=== PATIENT | female | born 1995 | race Caucasian/White ===

== ENCOUNTER 2022-08-09 10:41 | Outpatient (CLI) | payer OTHER, SELFPAY ==
--- NOTE | ~2022-08-09 | US_ITS ---
Pelvic ultrasound. Clinical History: First trimester , missed COMPARISON: 08/03/2022 Technique: Realtime transabdominal and transvaginal scanning of the pelvis was performed. Color flow Doppler and Doppler spectral analysis were performed. Findings: The uterus is anteverted. The intrauterine gestational sac is present, without pole or yolk sac. Minimal subchorionic hemorrhage noted. Average sac diameter of 2.1 cm corresponds to an estimated gestational age of 7 weeks 0 days. The right ovary measures 2.0 x 2.7 x 1.7 cm. No significant right ovarian or adnexal mass is seen. The left ovary measures 3.8 x 2.8 x 2.4 cm. No significant left ovarian or adnexal mass is seen. There is no evidence of free fluid in the cul de sac. Impression: Intrauterine gestational sac with estimated gestational age of 7 weeks 0 days, but no pole or y olk sac. Findings are compatible blighted ovum/missed . Minimal subchorionic hemorrhage. Reviewed, dictated and finalized at [facility]. Impression: Intrauterine gestational sac with estimated gestational age of 7 weeks 0 days, but no pole or yolk sac. Findings are compatible blighted ovum/missed abo rtion. Minimal subchorionic hemorrhage.
== END 2022-08-09 10:42 | disposition home or self-care (01) ==
LOC: ANHIMG 10:44
PROVIDERS: Visit Provider Obstetrics & Gynecology
DX: O02.1 Missed abortion (principal)
CPT/HCPCS: 76801; 76817

== ENCOUNTER 2022-08-10 02:13 | Day surgery (SDC) | payer OTHER, SELFPAY ==
[2022-08-06 09:48] VITALS: BMI 24.8
--- NOTE | 2022-08-06 09:52 | PC.NURSE ---
Report to the Outpatient Waiting Room, entrance under the green pavilion located off [facility], at time 1030 on date 08/10/22. Planned Procedure Time: 1230. Time changes happen often and if your time is changed the preop area will call you the afternoon before. - You and your visitor will be asked to self-screen and do not enter if you have any COVID symptoms. - Only one visitor is requested with a max of two and NO children visitors are allowed at this time. - The patient visitor may be requested to leave or wait in car when not with patient due to distancing restrictions. - A mask is optional within the hospital at this time. Patients may have clear liquids (water, carbonated beverages, clear teas, apple juice) until 3 hours prior to surgery with a maximum of 20 ounces. - No food from midnight until time of surgery Take the following medications with a SIP of water the morning of surgery: N/A DO NOT STOP ANY OF YOUR OTHER PRESCRIPTION MEDICATIONS PRIOR TO SURGERY?EXCEPT THE FOLLOWING Medications to discontinue per physician: N/A Date to take last dose: N/A Please no make-up, nail chadian, hairspray, perfume, deodorant, or body powder the day of surgery. No jewelry (including any body piercings) or valuables the day of surgery, leave them at home. Please take a shower or bath the night before, or the morning of, surgery with an antibacterial soap. Wear comfortable, loose fitting clothing. - Jewelry must be removed prior to entering the operating room. Rings and piercings that are not removed may be cut off. - The hospital will not accept responsibility for valuables. - Please leave all valuables, including medications, at home the day of surgery. If you are going home after surgery, a licensed non emergency services ambulance driver must drive you home. - NO public transportation without another adult if you receive anesthesia. - We recommend that an adult stay with you for 24 hours following discharge. - We also recommend that you do not drive, make important decision, drink alcoholic beverages, or take any drugs that were not prescribed by your health care provider for at least 24 hours after your discharge time. Follow any additional instructions given to you from your surgeon. If you or anyone in your household have experienced Covid symptoms in the past week, please notify your surgeon or the nurse liaison at the phone number below for possible testing. Telephone instructions given to PT - GISELLA SILVER and asked if any additional questions and then verbalized understanding. Patient advised to call surgeon office or pre surgery nurse liaison [phone] if any additional questions.
[2022-08-10 11:22] LABS: Hematocrit 34.3 % (37.0-47.0); Hemoglobin 11.7 g/dL (12.0-15.0); Mean Corpuscular HGB Conc 34.1 g/dl (32-36); Mean Corpuscular Hemoglobin 30.5 pg (26-34); Mean Corpuscular Volume 89.3 fl (80-100); Mean Platelet Volume 9.1 fl (7.4-10.4); Platelet Count Result 251 k/mm3 (150-375); Red Blood Count 3.84 M/mm3 (4.2-5.4); Red Cell Distribution Width 12.5 % (11.5-14.5); White Blood Count 9.5 K/mm3 (4.5-10.0)
--- NOTE | 2022-08-10 11:25 | P.PNAN_ITS ---
Anes - Initial Pre Proc Eval Procedure: Operation Date: 08/10/22 12:30 Proposed Procedures p Suction Dilation and Curettage - Eliseo Rosales MD Date/Time: 08/10/22 11:25 Surgeon: Eliseo Rosales MD Pre Op Diagnosis: missed ab Patient Data Age: 26 Gender: F Height: 1.7 m Weight: 72 kg Allergies Allergy/AdvReac Type Severity Reaction Status Date / Time No Known Allergies Allergy Verified 08/06/22 09:48 Home Medications Medication Instructions Recorded Confirmed Type No Home Medications 07/30/22 08/06/22 History Laboratory Tests 08/10/22 11:15 WBC 9.5 K/mm3 K/mm3 (4.5-10.0) RBC 3.84 M/mm3 L M/mm3 (4.2-5.4) Hgb 11.7 g/dL L g/dL (12.0-15.0) Hct 34.3 % L % (37.0-47.0) MCV 89.3 fl fl (80-100) MCH 30.5 pg pg (26-34) MCHC 34.1 g/dl g/dl (32-36) RDW 12.5 % % (11.5-14.5) Plt Count 251 k/mm3 k/mm3 (150-375) MPV 9.1 fl fl (7.4-10.4) Patient hx anesthesia problems: none Family hx anesthesia problems: none Results Review: All pre-operative results and documents have been reviewed as part of the pre- operative evaluation. [facility] Past Medical History Medical History Suppression of menses Surgical History Surgical History H/O wrist surgery Family History Family History Legal Guardian No problems noted. Mother Skin cancer Grandparent Skin cancer Hypertension Social History Social History Smoking status: Never smoker Alcohol intake: current Alcohol use details: RARE WHEN NOT Substance use: never Substance use type: does not use Living arrangements: with family Additional living arrangements comments: spouse Occupation/Education: occupation Gender identity (if verbalized by the patient): Female Sexual Orientation (if Verbalized by the Patient): Straight or Heterosexual Spiritual care concerns: No Anes - Eval Final PreProcedure Day of Procedure 08/10/22 11:25 Patient weight: normal Heart: regular rate and rhythm Lungs: clear to auscultation Airway: Mallampati scale class II Neurological: alert and oriented Last oral intake: >/= 8 hours ASA classification: II Emergent: no Anesthetic plan: proceed Anesthesia type and monitoring: general GIVS and standard monitoring Results Review: All pre-operative results and documents have been reviewed as part of the pre- operative evaluation. Informed Consent: The patient's anesthetic plan and its attendant risks and benefits were discussed with the patient/family/POA. Questions were solicited and answers provided to the satisfaction of the patient/family/POA.
[2022-08-10] MEDS: LACTATED RINGERS 1,000 ML 30 ML IV CONT (11:30)
[2022-08-10] MEDS: ACETAMINOPHEN 500 MG TABLET 1000 MG PO (11:30)
--- NOTE | 2022-08-10 11:47 | WPDHPUPDATE1 ---
History and Physical Update Update Date/Time: 08/10/22 11:47 26-year-old female presents for suction curettage due to blighted ovum. She has had 2 ultrasounds in the last 2 weeks which has shown growth in the Endometrial cavity but no pole no gestational sac. Assessment: 1. Blighted ovum Plan: 1. Suction curettage History and Physical has been reviewed, including an updated exam of the patient. There are NO changes in the patient's condition. Risks, benefits, and alternatives have been discussed and questions answered. Patient agrees to proceed with procedure.
[2022-08-10 12:47] VITALS: BP 126/69; PULSE 73; RESP 14; TEMP 37.3; O2SAT 100
[2022-08-10] MEDS: KETOROLAC 30 MG/ML VIAL (*BKC) IV PUSH (12:52)
[2022-08-10 12:55] VITALS: BP 102/61; PULSE 88; RESP 16; O2SAT 100
--- NOTE | 2022-08-10 13:00 | W.PM.PROC2 ---
Procedure Note - Detailed Date of Procedure 08/10/22 Pre-op Diagnosis blighted ovum Post-op Diagnosis Same Procedure Performed suction curettage Surgeon Eliseo Rosales MD Anesthesia MAC Findings moderate POC Description of Procedure Patient prepped/draped usual manner. Uterus sounded to 8 cm. Dilated to allow 8mm curette to be placed. Suction removed moderate amount POC, sharp curette confirmed no remaining tissue. No sig bleed. Sent to RR stable condition. Estimated Blood Loss 250 Drains No Packing No Pathology Yes Complications No immediate complications Condition Stable Disposition PACU [facility] Billing Surgery - Charge Forward: Surgery Billing
[2022-08-10 13:25] VITALS: BP 99/68; PULSE 62; RESP 16
[2022-08-10 13:50] VITALS: BP 104/68; PULSE 59; RESP 14
== END 2022-08-10 14:02 | disposition home or self-care (01) ==
PROVIDERS: Visit Provider Obstetrics & Gynecology
PROC: (CPT 59820; principal; 2022-08-10 12:30)
DX: O02.0 Blighted ovum and nonhydatidiform mole (principal)
CPT/HCPCS: 59820; 36415; 85027; 85461; 86850; 86900; 86901; 88305; A9270; J1885; J2250; J2405; J2704; J3010; J7120

== ENCOUNTER 2023-04-10 10:58 | Outpatient (CLI) | payer OTHER, SELFPAY ==
--- NOTE | ~2023-04-10 | XR_ITS ---
EXAMINATION: XR hysterosalpingogram DATE: 04/10/2023 12:38 INDICATION: Female infertility, unspecified. TECHNIQUE: Fluoroscopy was performed by the radiologist during contrast infusion into the endometrial cavity of the uterus by the primary physician. Fluoroscopy exposure time was 0.4 minutes. The total number of images was 4. FINDINGS: The uterine cavity is normal in morphology. The left fallopian tube is normal in caliber. T here is normal free intraperitoneal spillage of contrast on the left. There is no contrast opacificat ion of the right fallopian tube. IMPRESSION: 1. Occluded right fallopian tube. 2. Normal left fallopian tube. Reviewed, dictated and finalized at location A. [employer]
== END 2023-04-10 10:59 | disposition home or self-care (01) ==
PROVIDERS: Visit Provider Student in an Organized Health Care Education/Training Program
DX: N97.9 Female infertility, unspecified (principal)
CPT/HCPCS: 58340; 74740; Q9966

== ENCOUNTER 2023-10-18 09:18 | Outpatient (CLI) | payer BC, SELFPAY ==
[2023-10-18 10:39] LABS: Basophils Absolute Auto 0.1 K/mm3 (0.0-0.1); Basophils Percent Auto 0.6 % (0.2-1.2); Eosinophils Absolute Auto 0.1 K/mm3 (0-0.3); Eosinophils Percent Auto 1.3 % (0-4.4); Hematocrit 35.1 % (37.0-47.0); Hemoglobin 11.5 g/dL (12.0-15.0); Immature Granulocyte Absolute 0.27 K/mm3 (0.00-0.031); Immature Granulocyte Percent A 2.4 % (0-0.5); Lymphocytes Absolute Auto 2.54 K/mm3 (0.9-3.2); Lymphocytes Percent Auto 22.7 % (18.3-44.2); Mean Corpuscular HGB Conc 32.8 g/dl (32-36); Mean Corpuscular Hemoglobin 31.3 pg (26-34); Mean Corpuscular Volume 95.6 fl (80-100); Mean Platelet Volume 9.5 fl (7.4-10.4); Monocytes Absolute Auto 0.7 K/mm3 (0.1-0.6); Monocytes Percent Auto 6.3 % (2.6-8.5); Neutrophils Absolute Auto 7.5 K/mm3 (1.3-6.7); Neutrophils Percent Auto 66.7 % (45.5-73.1); Platelet Count Result 242 k/mm3 (150-375); Red Blood Count 3.67 M/mm3 (4.2-5.4); Red Cell Distribution Width 13.9 % (11.5-14.5); White Blood Count 11.2 K/mm3 (4.5-10.0)
[2023-10-18 11:18] LABS: Glucose 1 Hour PP 50gm Dose 144 mg/dL
[2023-10-18 11:46] LABS: HIV 1/2 Ab P24 Ag Result Negative (Negative)
[2023-10-18 13:13] LABS: Rapid Plasma Reagin Non-Reactive (NonReactive)
== END 2023-10-18 09:19 | disposition home or self-care (01) ==
LOC: ANHLAB 09:19
PROVIDERS: Visit Provider Obstetrics & Gynecology
DX: Z34.90 Encounter for supervision of normal pregnancy, unspecified, unspecified trimester (principal); Z3A.00 Weeks of gestation of pregnancy not specified; N94.89 Other specified conditions associated with female genital organs and menstrual cycle
CPT/HCPCS: 36415; 82947; 85025; 86592; 86703; 86747; G0432

== ENCOUNTER 2023-10-25 07:02 | Outpatient (CLI) | payer BC, SELFPAY ==
[2023-10-25 07:39] LABS: Glucose Fasting Gestational 80 mg/dL (>/=95)
[2023-10-25 10:07] LABS: Glucose 2 Hour Gest 127 mg/dL (>/= 155)
[2023-10-25 10:12] LABS: Glucose 1 Hour Gest 158 mg/dL (>/=180)
[2023-10-25 11:40] LABS: Glucose 3 Hour Gest 126 mg/dL (>/=140)
== END 2023-10-25 07:03 | disposition home or self-care (01) ==
LOC: ANHLAB 07:03
PROVIDERS: Visit Provider Obstetrics & Gynecology
DX: R73.09 Other abnormal glucose (principal)
CPT/HCPCS: 36415; 82951; 82952

== ENCOUNTER 2023-10-31 17:48 | Observation (INO) | payer BC, SELFPAY ==
--- NOTE | 2023-10-31 17:48 | OBADM ---
This patient, Keyona Conte, admitted to the OB room OB Post 115 for observation. Patient/family oriented to hospital policies and general routines including ID bracelet, bed and alarms, visiting hours, pain management, procedures, bathroom and other care routines, personal items, smoking policy, room service/diet, and visiting hours. Patient/Family are encouraged to report perceived risks to care and to ask questions if they do not understand what they are told or what they should do.
[2023-10-31 18:00] VITALS: BMI 30.7
[2023-10-31 18:25] VITALS: TEMP 37
[2023-10-31 18:31] VITALS: BP 115/73; PULSE 96
[2023-10-31 18:37] LABS: Appearance Urine Clear (Clear); Bilirubin Urine Negative (Negative); Blood Urine Negative (Negative); Color Urine Yellow (Yellow); Glucose Urine UA Negative (Negative); Ketones Urine Negative (Negative); Leukocyte Esterase Ur Negative LEU/UL (Negative); Nitrate Urine Negative (Negative); Protein Urine Negative (Negative); Urobilinogen Urine 0.2 mg/dL (<2.0); pH Urine 6.5 (5.0-9.0)
[2023-10-31 18:38] LABS: Add Urine Microscopic? NO; Specific Grav Ur 1.004 (1.001-1.035)
[2023-10-31 18:45] VITALS: BP 119/67; PULSE 90
[2023-10-31 19:00] VITALS: BP 120/71; PULSE 86
[2023-10-31 19:15] VITALS: BP 124/74; PULSE 94
[2023-10-31 19:30] VITALS: BP 120/71; PULSE 96
[2023-10-31] MEDS: TERBUTALINE SULFATE 1 MG/ML VIAL 0.25 MG SUB-Q (20:32)
--- NOTE | 2023-11-01 10:28 | P.PNOB_ITS ---
OB - Triage/Final Diagnosis Visit Information Date of evaluation: 10/31/23 Reason for evaluation: threatened labor Comments/Additional reasons for admission: I have assessed the risk for this patient, Keyona Jose Manuel Conte, and determined that she would benefit from observation care. Evaluation Laboratory results: Laboratory Tests 10/31/23 18:22 Urine Color Yellow Urine Appearance Clear Urine pH 6.5 Ur Specific [place] 1.004 Urine Protein Negative Urine Glucose (UA) Negative Urine Ketones Negative Ur Blood (Man) Negative Urine Nitrate Negative Urine Bilirubin Negative Urine Urobilinogen 0.2 Leukocyte Esterase Rfl Negative Vital signs: Vital Signs - 24 hr 10/31/23 18:31 10/31/23 18:45 10/31/23 19:00 Temperature Pulse Rate 96 90 86 Blood Pressure 115/73 119/67 120/71 Oxygen Delivery 10/31/23 19:15 10/31/23 19:30 10/31/23 18:25 Temperature 98.6 F Pulse Rate 94 96 Blood Pressure 124/74 120/71 Oxygen Delivery 10/31/23 18:00 Temperature Pulse Rate Blood Pressure Oxygen Delivery Room Air
== END 2023-10-31 21:47 | disposition home or self-care (01) ==
PROVIDERS: Admitting Provider Student in an Organized Health Care Education/Training Program; Visit Provider Student in an Organized Health Care Education/Training Program
DX: O47.03 False labor before 37 completed weeks of gestation, third trimester (principal); Z3A.30 30 weeks gestation of pregnancy
CPT/HCPCS: 81003; 96372; G0378; G0379; J3105

== ENCOUNTER 2023-11-07 21:49 | Observation (INO) | payer BC, SELFPAY ==
[2023-11-07 21:51] VITALS: BP 116/76; PULSE 95; RESP 15; TEMP 36.6; O2SAT 100
[2023-11-07 22:24] VITALS: BP 124/90; PULSE 88; RESP 18; O2SAT 99
--- NOTE | 2023-11-07 22:33 | PC.NURSE ---
OB to the ER at 2230
[2023-11-07 22:35] LABS: Basophils Absolute Auto 0.1 K/mm3 (0.0-0.1); Basophils Percent Auto 0.4 % (0.2-1.2); Eosinophils Absolute Auto 0.2 K/mm3 (0-0.3); Eosinophils Percent Auto 1.7 % (0-4.4); Hematocrit 37.8 % (37.0-47.0); Hemoglobin 12.5 g/dL (12.0-15.0); Immature Granulocyte Absolute 0.35 K/mm3 (0.00-0.031); Immature Granulocyte Percent A 2.8 % (0-0.5); Lymphocytes Percent Auto 23.9 % (18.3-44.2); Mean Corpuscular HGB Conc 33.1 g/dl (32-36); Mean Corpuscular Hemoglobin 30.8 pg (26-34); Mean Corpuscular Volume 93.1 fl (80-100); Monocytes Absolute Auto 1.2 K/mm3 (0.1-0.6); Monocytes Percent Auto 9.1 % (2.6-8.5); Neutrophils Absolute Auto 7.8 K/mm3 (1.3-6.7); Neutrophils Percent Auto 62.1 % (45.5-73.1); Platelet Count Result 188 k/mm3 (150-375); Red Blood Count 4.06 M/mm3 (4.2-5.4); Red Cell Distribution Width 14.1 % (11.5-14.5); White Blood Count 12.6 K/mm3 (4.5-10.0)
[2023-11-07 22:46] LABS: Alanine Aminotransferase 16 U/L (6-35); Alkaline Phosphatase 163 U/L (38-126); Anion Gap 6 mmol/L (4-12); Aspartate Amino Transferase 29 U/L (14-36); Bilirubin,Total 0.5 mg/dL (0.2-1.3); Blood Urea Nitrogen 6 mg/dL (7-17); Calcium 9.1 mg/dL (8.4-10.2); Carbon Dioxide 24 mmol/L (22-30); Chloride 106 mmol/L (98-107); Estimated CRCL calculation 110 ml/min; Estimated Glomerular Filt Rate > 60; Glucose 81 mg/dL (65-110); Potassium 3.7 mmol/L (3.4-5.0); Sodium 136 mmol/L (137-145)
[2023-11-07 23:02] LABS: Creatine Kinase 72 U/L (30-135)
[2023-11-07] MEDS: LACTATED RINGERS 1,000 ML 999 ML (23:29)
[2023-11-07 23:35] LABS: Prothrombin Time 13.8 Seconds (11.1-14.7)
[2023-11-07 23:36] LABS: Fibrinogen 531 mg/dl (215-510); Partial Thromboplastin Time 26.1 Seconds (22.3-36.8)
[2023-11-07] MEDS: TERBUTALINE SULFATE 1 MG/ML VIAL 0.25 MG SUB-Q (23:39)
[2023-11-07 23:40] LABS: D Dimer 1.99 ug/mL (<0.48)
[2023-11-08] VITALS (75 sets, daily range): BP systolic 107–111; BP diastolic 51–67; PULSE 70–101; TEMP 36.7; O2SAT 94–100; BMI 31.5
[2023-11-08 00:03] LABS: Appearance Urine Clear (Clear); Bacteria Urine 1+ /hpf; Bilirubin Urine Negative (Negative); Blood Urine Negative (Negative); Color Urine Yellow (Yellow); Glucose Urine UA Negative (Negative); Ketones Urine 1+ mg/dL (Negative); Leukocyte Esterase Ur Trace LEU/UL (Negative); Need Manual Microscopic Reviewed; Nitrate Urine Negative (Negative); Non Pathogenic Casts 0-2; Protein Urine Negative (Negative); RBC Urine 0-2 /hpf (0-2); Specific Grav Ur 1.008 (1.001-1.035); Squamous Epithelial Cell Urine None Seen /hpf (Few); Urobilinogen Urine 0.2 mg/dL (<2.0); pH Urine 6.5 (5.0-9.0)
[2023-11-08 00:05] LABS: Add Urine Microscopic? YES
--- NOTE | 2023-11-08 00:08 | PC.NURSE ---
Bedside NST performed in ED by Faustino Hassan RN. [id number] FHR1: Baseline 145 with moderate variability and accelerations. no decelerations noted. FHR2: Baseline 135 with moderate variability and accelerations. no decelerations noted. Uterus: 2 contractions noted during this period. lasting 50-70 seconds. 6.5 minute apart. Uterine irritability noted in between contractions and throughout NST. 2316: RN called Dr. Bolden and notified her of bedside NST results. Orders Received. 2333: Terbutaline administered. RN stayed on unit. Uterine irritability ceased. Pts primary ER nurse made aware of results of NST as well as administration of Terbutaline.
--- NOTE | 2023-11-08 00:16 | ED.GENADULT ---
HPI - General Adult General Chief complaint: Animal Bite Stated complaint: snake bite Time Seen by Provider: 11/07/23 22:54 History of Present Illness HPI narrative: patient is a 28-year-old female presents emergency department with chief complaint of possible snake bite to the left thigh. The patient is 31 weeks and called her OBGYN. The patient was told to come the emergency department for evaluation. The patient reports that the area is non bruised reports only a small wound to the left thigh patient does now report that she is having some contractions Related Data Home Medications Medication Instructions Recorded Confirmed vits no.126-ferrous fum tablet PO 07/19/23 10/29/23 28 mg iron-folic acid 800 mcg tablet (Classic ) aspirin 81 mg tablet,delayed 162 mg PO DAILY 09/10/23 10/29/23 release (Adult Low Dose Aspirin) Allergies Allergy/AdvReac Type Severity Reaction Status Date / Time No Known Allergies Allergy Verified 10/29/23 15:19 Review of Systems Review of Systems: A 10 system review of systems was completed on the patient and is negative except for what is stated in the HPI. Nursing and ancillary documentation was reviewed. [facility] Past Medical History Medical History Suppression of menses Surgical History Surgical History H/O wrist surgery History of hysteroscopy (08/10/22) Hscope D&C missed AB Family History Family History Legal Guardian No problems noted. Mother Skin cancer Grandparent Skin cancer Hypertension Social History Social History Smoking status: Never smoker Second hand tobacco smoke exposure: No Alcohol intake: former Alcohol use details: RARE WHEN NOT Substance use: never Substance use type: does not use Lack of Transportation: No Lack of Food: Never True Current Housing: I Have Housing Concerned About Future Housing: No Difficulty Paying Gas/Electric Bills: No Difficulty Paying for Meds: No Currently Unemployed: No Education: Master's Degree or Higher Difficulty w/ Childcare or Family Care: No Living arrangements: with family Additional living arrangements comments: spouse 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 Gender identity (if verbalized by the patient): Female Sexual Orientation (if Verbalized by the Patient): Straight or Heterosexual Spiritual care concerns: No Exam Narrative: GENERAL: Well-appearing, well-nourished, and in no acute distress. HEAD: Normocephalic, atraumatic. EYES: PERRLA and EOMI. ENT: Nares clear, no rhinorrhea or epistaxis. Mucous membranes moist. NECK: Supple. CHEST: Clear to auscultation. No respiratory distress. HEART: Regular rate and rhythm. No murmur heard. Normal peripheral pulses. ABDOMEN: Soft, nontender, nondistended, normal active bowel sounds. EXTREMITIES: Normal range of motion. No edema. small abrasion/puncture wound to the left thigh no bruising SKIN: Warm, dry, no rash. NEURO: No focal deficits. Alert and oriented x3. PSYCH: Normal mood and affect. Course Vital Signs Vital signs: Vital Signs Temperature 36.6 C 11/07/23 21:51 Pulse Rate 95 11/07/23 21:51 Respiratory Rate 15 11/07/23 21:51 Blood Pressure 116/76 11/07/23 21:51 Pulse Oximetry 100 11/07/23 21:51 Oxygen Delivery Room Air 11/07/23 21:51 Temperature 36.6 C 11/07/23 21:51 Pulse Rate 88 11/07/23 22:24 Respiratory Rate 18 11/07/23 22:24 Blood Pressure 124/90 11/07/23 22:24 Pulse Oximetry 99 11/07/23 22:24 Oxygen Delivery Room Air 11/07/23 21:51 Medical Decision Making MDM Narrative Medical decision rufino
--- NOTE | 2023-11-08 01:12 | PC.NURSE ---
Called Dr. Bolden, orders received to redraw CBC without differential, PT, APTT, INR, and fibrinogen at 0530, administer tylenol, zofran, and tums as needed, LR 500 ml bolus if contractions resume and terbutaline if they are not resolved, and vital signs every four hours.
--- NOTE | 2023-11-08 02:02 | OBADM ---
This patient, Keyona Conte, admitted to the OB room OB Post 116 for observation. Patient/family oriented to hospital policies and general routines including ID bracelet, bed and alarms, visiting hours, pain management, procedures, bathroom and other care routines, personal items, smoking policy, room service/diet, and visiting hours. Patient/Family are encouraged to report perceived risks to care and to ask questions if they do not understand what they are told or what they should do.
[2023-11-08] MEDS: CALCIUM CARBONATE (TUMS) 500 MG (200 MG ELEMENTAL) PO (02:34)
[2023-11-08] MEDS: FAMOTIDINE 20 MG TABLET PO (03:34)
[2023-11-08 05:48] LABS: Hematocrit 33.3 % (37.0-47.0); Hemoglobin 11.1 g/dL (12.0-15.0); Mean Corpuscular HGB Conc 33.3 g/dl (32-36); Mean Corpuscular Hemoglobin 31.2 pg (26-34); Mean Corpuscular Volume 93.5 fl (80-100); Mean Platelet Volume 10.4 fl (7.4-10.4); Platelet Count Result 173 k/mm3 (150-375); Red Blood Count 3.56 M/mm3 (4.2-5.4); Red Cell Distribution Width 14.2 % (11.5-14.5); White Blood Count 11.5 K/mm3 (4.5-10.0)
[2023-11-08 06:07] LABS: Partial Thromboplastin Time 26.3 Seconds (22.3-36.8)
[2023-11-08 06:08] LABS: Fibrinogen 489 mg/dl (215-510)
--- NOTE | 2023-11-08 07:37 | PM.OBTRLD ---
OB - Triage/Final Diagnosis Visit Information Comments/Additional reasons for admission: I have assessed the risk for this patient, Keyona Conte, and determined that she would benefit from observation care. Evaluation Laboratory results: Laboratory Tests 11/07/23 11/07/23 11/08/23 22:29 23:19 05:32 WBC 12.6 H 11.5 H RBC 4.06 L 3.56 L Hgb 12.5 11.1 L Hct 37.8 33.3 L MCV 93.1 93.5 MCH 30.8 31.2 MCHC 33.1 33.3 RDW 14.1 14.2 Plt Count 188 173 MPV 10.0 10.4 Immature Gran % (Auto) 2.8 H Neut % (Auto) 62.1 Lymph % (Auto) 23.9 [place] % (Auto) 9.1 H Eos % (Auto) 1.7 Baso % (Auto) 0.4 Lymph # (Auto) 3.00 [place] # (Auto) 1.2 H Eos # (Auto) 0.2 Baso # (Auto) 0.1 Abs Immat Gran (auto) 0.35 H Absolute Neuts (auto) 7.8 H Absolute Nucleated RBC 0.000 Nucleated RBC % 0.0 PT 13.8 INR 1.0 APTT 26.1 26.3 Fibrinogen 531 H 489 D-Dimer 1.99 H Sodium 136 L Potassium 3.7 Chloride 106 Carbon Dioxide 24 Anion Gap 6 BUN 6 L Creatinine 0.60 L Estim Creat Clear Calc 110 Estimated GFR > 60 Glucose 81 Calcium 9.1 Total Bilirubin 0.5 AST 29 ALT 16 Alkaline Phosphatase 163 H Total Creatine Kinase 72 Total Protein 7.0 Albumin 4.0 Urine Color Yellow Urine Appearance Clear Urine pH 6.5 Ur Specific [place] 1.008 Urine Protein Negative Urine Glucose (UA) Negative Urine Ketones 1+ H Ur Blood (Man) Negative Urine Nitrate Negative Urine Bilirubin Negative Urine Urobilinogen 0.2 Add Ur Microanalysis Reviewed Leukocyte Esterase Rfl Trace H Urine RBC 0-2 Urine WBC 6-10 H Ur Squamous Epith Cells None seen Urine Bacteria 1+ H Urine Casts 0-2 Vital signs: Vital Signs - 24 hr 11/07/23 21:51 11/07/23 22:24 11/08/23 01:48 Temperature 97.9 F Pulse Rate 95 88 Respiratory Rate 15 18 Blood Pressure 116/76 124/90 Pulse Oximetry 100 99 99 Oxygen Delivery Room Air 11/08/23 01:53 11/08/23 01:54 11/08/23 01:58 Temperature Pulse Rate 91 Respiratory Rate Blood Pressure 107/51 L Pulse Oximetry 99 99 Oxygen Delivery 11/08/23 02:03 11/08/23 02:08 11/08/23 02:13 Temperature Pulse Rate Respiratory Rate Blood Pressure Pulse Oximetry 98 98 99 Oxygen Delivery 11/08/23 02:18 11/08/23 02:23 11/08/23 02:28 Temperature Pulse Rate Respiratory Rate Blood Pressure Pulse Oximetry 98 99 99 Oxygen Delivery 11/08/23 02:33 11/08/23 02:38 11/08/23 02:43 Temperature Pulse Rate Respiratory Rate Blood Pressure Pulse Oximetry 99 98 98 Oxygen Delivery 11/08/23 02:48 11/08/23 02:53 11/08/23 02:58 Temperature Pulse Rate Respiratory Rate Blood Pressure Pulse Oximetry 99 97 97 Oxygen Delivery 11/08/23 03:03 11/08/23 03:08 11/08/23 03:24 Temperature Pulse Rate Respiratory Rate Blood Pressure Pulse Oximetry 96 96 99 Oxygen Delivery 11/08/23 03:29 11/08/23 03:34 11/08/23 03:39 Temperature Pulse Rate Respiratory Rate Blood Pressure Pulse Oximetry 97 99 97 Oxygen Delivery 11/08/23 03:44 11/08/23 03:49 11/08/23 03:54 Temperature Pulse Rate Respiratory Rate Blood Pressure Pulse Oximetry 98 99 97 Oxygen Delivery 11/08/23 03:59 11/08/23 04:04 11/08/23 04:09 Temperature Pulse Rate Respiratory Rate Blood Pressure Pulse Oximetry 97 98 95 Oxygen Delivery 11/08/23 04:14 11/08/23 04:19 11/08/23 04:24 Temperature Pulse Rate Respiratory Rate Blood Pressure Pulse Oximetry 97 99 100 Oxygen Delivery 11/08/23 04:38 11/08/23 04:43 11/08/23 04:48 Temperature Pulse Rate Respiratory Rate Blood Pressure Pulse Oximetry 99 100 98 Oxygen Delivery 11/08/23 04:53 11/08/23 04:58 11/08/23 05:03 Temperature Pulse Rate Respiratory R
[2023-11-08 07:41] LABS: INR 1.1; Prothrombin Time 14.2 Seconds (11.1-14.7)
--- NOTE | 2023-11-08 07:50 | PC.NURSE ---
Dr. Bolden at the bedside assessing the pt. POC discussed with pt. Order received for discharge.
[2023-11-08] MEDS: TETANUS,DIPHTHERIA,AC PERTUSSIS ADULT (0.5 ML) BOOSTRIX IM (08:19)
== END 2023-11-08 08:34 | disposition home or self-care (01) ==
LOC: ANHED 11-08 00:25 → ANHOBPP 11-08 00:49
PROVIDERS: Admitting Provider Obstetrics & Gynecology; Emergency Provider Emergency Medicine; Visit Provider Obstetrics & Gynecology
DX: O26.893 Other specified pregnancy related conditions, third trimester (principal); S71.152A Open bite, left thigh, initial encounter; W59.11XA Bitten by nonvenomous snake, initial encounter; Z3A.31 31 weeks gestation of pregnancy; Z23 Encounter for immunization
CPT/HCPCS: 36415; 80053; 81001; 82550; 85025; 85027; 85380; 85384; 85610; 85730; 87086; 90471; 90715; 96360; 96361; 96372; 99285; A9270; G0378; J3105; J7120

== ENCOUNTER 2023-12-20 15:46 | Outpatient (RCR) | payer BC, SELFPAY ==
[2023-11-12 16:22] VITALS: BP 116/66; PULSE 102
[2023-11-15 10:49] VITALS: BP 110/70; PULSE 85
[2023-11-19 16:15] VITALS: BP 115/70; PULSE 87
[2023-11-22 17:56] VITALS: BP 117/66; PULSE 84
[2023-11-26 16:17] VITALS: BP 116/72; PULSE 96
[2023-11-29 15:42] VITALS: BP 121/78; PULSE 87
[2023-12-03 16:10] VITALS: BP 119/67; PULSE 98
[2023-12-05 09:04] VITALS: BP 121/74; PULSE 83
[2023-12-10 16:20] VITALS: BP 123/69; PULSE 94
[2023-12-13 15:00] VITALS: BP 125/77; PULSE 95
[2023-12-17 16:04] VITALS: BP 116/76; PULSE 95
--- NOTE | ~2023-12-20 | US_ITS ---
EXAMINATION: US OB BPP multi gestation DATE: 11/29/2023 16:38 INDICATION: Multiple gestations during third trimester of TECHNIQUE: Real-time ultrasound of the pelvis was performed. The interpreting radiologist was not pre sent for the study. COMPARISON: None. FINDINGS: There are two living fetuses. Fetus A on maternal right: Placenta is anterior. Subjectively normal amniotic fluid volume with normal deepest vertical pocket o f 4.5 cm . Presentation is vertex. cardiac activity and movement are noted. heart r ate is 141 beats per minute (bpm). Biophysical profile performed by the technologist: breathing (30 sec sustained breathing in 30 minutes): 2 out of 2 movement (3 gross body movements in 30 minutes): 2 out of 2 tone (one episode of ztmgbvv-sgqnfdduy-hpjkuvr limb movement): 2 out of 2 Amniotic fluid pocket (2 cm): 2 out of 2 Total score: 8 out of 8 Fetus B on maternal left: Placenta is on maternal left. Subjectively normal amniotic fluid volume with normal deepest vertical pocket of 3.6 cm. Presentation is vertex but with the head position more cephalad than fetus A and wi th the body of fetus B extending transversely across the fundal side of the fetus A. cardiac ac tivity and movement are noted. heart rate is 135 bpm. Biophysical profile performed by the technologist: breathing (30 sec sustained breathing in 30 minutes): 2 out of 2 movement (3 gross body movements in 30 minutes): 2 out of 2 tone (one episode of ekvzdgf-jgcdsdxeq-hsexncn limb movement): 2 out of 2 Amniotic fluid pocket (2 cm): 2 out of 2 Total score: 8 out of 8 IMPRESSION: 1. Living twin fetuses. 2. Biophysical profile 8 out of 8 for fetus A and 8 out of 8 for fetus B. Reviewed, dictated and finalized at location A.
--- NOTE | ~2023-12-20 | US_ITS ---
EXAMINATION: US OB BPP multi gestation DATE: 11/22/2023 17:30 INDICATION: Twin gestation. Third trimester. TECHNIQUE: Real-time ultrasound of the pelvis was performed. COMPARISON: Ultrasound 11/15/2023, 06/05/23 FINDINGS: There are two living fetuses. The first ultrasound demonstrated a dichorionic, diamniotic . The placentas are anterior and on the left. The amniotic fluid volume is subjectively normal. Fetus A: Presentation is vertex on the mother's left. heart rate is 162 beats per minute (bpm). Biophysical profile performed by the technologist: breathing (30 sec sustained breathing in 30 minutes): 2 out of 2 movement (3 gross body movements in 30 minutes): 2 out of 2 tone (one episode of epzcumh-cbzmxghmf-safhqcm limb movement): 2 out of 2 Amniotic fluid pocket (2 cm): 2 out of 2 Total score: 8 out of 8 Fetus B: Presentation is vertex on the mother's right. heart rate is 140 bpm. Biophysical profile performed by the technologist: breathing (30 sec sustained breathing in 30 minutes): 2 out of 2 movement (3 gross body movements in 30 minutes): 2 out of 2 tone (one episode of kegfcbw-jamrcmzst-xxtxjzs limb movement): 2 out of 2 Amniotic fluid pocket (2 cm): 2 out of 2 Total score: 8 out of 8 IMPRESSION: 1. Living dichorionic, diamniotic twin fetuses. 2. Biophysical profile 8 out of 8 for fetus A and 8 out of 8 for fetus B. Reviewed, dictated and finalized at location E.
--- NOTE | ~2023-12-20 | US_ITS ---
EXAMINATION: US OB BPP multi gestation DATE: 12/05/2023 09:09 INDICATION: Decreased movement) during third trimester. TECHNIQUE: Real-time ultrasound of the pelvis was performed. The interpreting radiologist was not pre sent for the study. COMPARISON: None. FINDINGS: There are two living fetuses. Fetus A (maternal right): Presentation is vertex. The placenta is anterior. cardiac activity and movement are noted . heart rate is 152 beats per minute (bpm). Amniotic fluid volume is subjectively normal with n ormal deepest vertical pocket of 3.8 cm Biophysical profile performed by the technologist: breathing (30 sec sustained breathing in 30 minutes): 2 out of 2 movement (3 gross body movements in 30 minutes): 2 out of 2 tone (one episode of fbadcht-mfmswhzqw-qjguvvh limb movement): 2 out of 2 Amniotic fluid pocket (2 cm): 2 out of 2 Total score: 8 out of 8 Fetus B (maternal left): Presentation is vertex with head positioned further from the cervix and fetus A and with the body at the fundus in transverse lie. Placenta is on the maternal left. cardiac activity and move ment are noted. heart rate is 151 bpm. Amniotic fluid volume is subjectively normal with normal deepest vertical pocket of 4.9 cm. Biophysical profile performed by the technologist: breathing (30 sec sustained breathing in 30 minutes): 2 out of 2 movement (3 gross body movements in 30 minutes): 2 out of 2 tone (one episode of xcnelbv-oelhjxrxo-jbrqzsa limb movement): 2 out of 2 Amniotic fluid pocket (2 cm): 2 out of 2 Total score: 8 out of 8 IMPRESSION: 1. Living twin fetuses. 2. Normal placentas and subjectively normal amniotic fluid volumes 3. Biophysical profile 8 out of 8 for fetus A and 8 out of 8 for fetus B. Reviewed, dictated and finalized at location A.
--- NOTE | ~2023-12-20 | US_ITS ---
EXAMINATION: US OB BPP multi gestation DATE: 11/15/2023 10:50 INDICATION: Twins. Third trimester. TECHNIQUE: Real-time ultrasound of the pelvis was performed. COMPARISON: Ultrasound 06/05/2023 FINDINGS: There are two living fetuses. The first ultrasound demonstrated a dichorionic, diamniotic . The placentas are anterior and on the left. The amniotic fluid volume is subjectively normal. Fetus A: Presentation is vertex on the mother's right. heart rate is 166 beats per minute (bpm). Biophysical profile performed by the technologist: breathing (30 sec sustained breathing in 30 minutes): 2 out of 2 movement (3 gross body movements in 30 minutes): 2 out of 2 tone (one episode of mrfnbia-wmjzomrdl-mccknou limb movement): 2 out of 2 Amniotic fluid pocket (2 cm): 2 out of 2 Total score: 8 out of 8 Fetus B: Presentation is vertex on the mother's left. heart rate is 149 bpm. Biophysical profile performed by the technologist: breathing (30 sec sustained breathing in 30 minutes): 2 out of 2 movement (3 gross body movements in 30 minutes): 2 out of 2 tone (one episode of ogaoofo-cykukemsl-htmqxap limb movement): 2 out of 2 Amniotic fluid pocket (2 cm): 2 out of 2 Total score: 8 out of 8 IMPRESSION: 1. Living dichorionic, diamniotic twin fetuses. 2. Biophysical profile 8 out of 8 for fetus A and 8 out of 8 for fetus B. Reviewed, dictated and finalized at location A.
--- NOTE | ~2023-12-20 | US_ITS ---
EXAMINATION: US OB BPP multi gestation DATE: 12/13/2023 17:08 INDICATION: Twin during third trimester TECHNIQUE: Real-time ultrasound of the pelvis was performed. The interpreting radiologist was not pre sent for the study. COMPARISON: None. FINDINGS: Dichorionic, diamniotic with two living fetuses. Fetus A: Presentation is vertex and closer to the cervix. Placenta is anterior. cardiac activity and fet al movement are noted. heart rate is 155 beats per minute (bpm). Amniotic fluid volume is subje ctively normal with normal deepest vertical pocket of 4.6 cm. Biophysical profile performed by the technologist: breathing (30 sec sustained breathing in 30 minutes): 2 out of 2 movement (3 gross body movements in 30 minutes): 2 out of 2 tone (one episode of bkelatm-qdnqugmdm-lisslfl limb movement): 2 out of 2 Amniotic fluid pocket (2 cm): 2 out of 2 Total score: 8 out of 8 Fetus B: Presentation is vertex with head position further from the cervix than fetus a and with body in trans verse lie. cardiac activity and movement are noted. heart rate is 141 bpm. Biophysical profile performed by the technologist: breathing (30 sec sustained breathing in 30 minutes): 2 out of 2 movement (3 gross body movements in 30 minutes): 2 out of 2 tone (one episode of dqhywkm-zkvsfzium-xpexuem limb movement): 2 out of 2 Amniotic fluid pocket (2 cm): 2 out of 2 Total score: 8 out of 8 IMPRESSION: 1. Living twin fetuses. 2. Normal placenta and subjectively normal amniotic fluid volumes. 3. Biophysical profile 8 out of 8 for fetus A and 8 out of 8 for fetus B. Reviewed, dictated and finalized at location A.
--- NOTE | ~2023-12-20 | US_ITS ---
LIMITED OBSTETRIC ULTRASOUND/BIOPHYSICAL PROFILE Ordering provider: Eliseo Rosaels MD History: . BPP, twins . Comparison: None. FINDINGS: PRESENTATION: fetus A: Vertex. Spine to maternal right fetus B: Vertex. Spine to maternal left PLACENTAL LOCATION: fetus A: anterior. fetus B: Maternal left. No previa. HEART RATE: fetus A: 158 bpm fetus B: 1 38 bpm. AMNIOTIC FLUID INDEX: Largest vertical pocket is fetus A: 5.1 cm. fetus B: 3.7: cm. OTHER: Maternal ovaries not visualized. SCORE: A and B breathing movements: 2 movements: 2 tone: 2 Amniotic fluid volume: 2 Total: 8 IMPRESSION: A and B Normal biophysical profile. Reviewed, dictated and finalized at location A.
[2023-12-20 17:58] VITALS: BP 116/74; PULSE 104
== END 2024-01-01 08:18 | disposition home or self-care (01) ==
LOC: ANHOBOP 15:46
PROVIDERS: Visit Provider Obstetrics & Gynecology
DX: O30.003 Twin pregnancy, unspecified number of placenta and unspecified number of amniotic sacs, third trimester (principal); Z3A.32 32 weeks gestation of pregnancy; Z3A.33 33 weeks gestation of pregnancy; Z3A.34 34 weeks gestation of pregnancy; Z3A.35 35 weeks gestation of pregnancy; Z3A.36 36 weeks gestation of pregnancy; Z3A.37 37 weeks gestation of pregnancy
CPT/HCPCS: 59025; 76819

== ENCOUNTER 2023-12-24 08:58 | Inpatient (IN) | payer BC, SELFPAY ==
--- NOTE | 2023-12-23 15:18 | PM.IMHP ---
H&P: HPI History of Present Illness Date/Time: 12/23/23 15:18 28-year-old female presents at 38 weeks gestation with twin . All of her growth scans and testing have been normal. has been without significant complications or concerns. Presents today for delivery. Chief Complaint: Review of Systems Review of Systems: All systems reviewed & are unremarkable except as noted in HPI and below PMFSH Past Medical History Medical History Suppression of menses Surgical History Surgical History H/O wrist surgery History of hysteroscopy (08/10/22) Hscope D&C missed AB Family History Family History Legal Guardian No problems noted. Mother Skin cancer Grandparent Skin cancer Hypertension Social History Social History Smoking status: Never smoker Second hand tobacco smoke exposure: No Alcohol intake: former Alcohol use details: RARE WHEN NOT Substance use: never Substance use type: does not use Lack of Transportation: No Lack of Food: Never True Current Housing: I Have Housing Concerned About Future Housing: No Difficulty Paying Gas/Electric Bills: No Difficulty Paying for Meds: No Currently Unemployed: No Education: Master's Degree or Higher Difficulty w/ Childcare or Family Care: No Living arrangements: with family Additional living arrangements comments: spouse 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 Gender identity (if verbalized by the patient): Female Sexual Orientation (if Verbalized by the Patient): Straight or Heterosexual Spiritual care concerns: No Meds Home Medications and Allergies Home Medications Medication Instructions Recorded Confirmed Type vits no.126-ferrous fum 1 tablet PO DAILY 07/19/23 12/18/23 History 28 mg iron-folic acid 800 mcg tablet (Classic ) aspirin 81 mg tablet,delayed 162 mg PO DAILY 09/10/23 12/18/23 History release (Adult Low Dose Aspirin) Allergies Allergy/AdvReac Type Severity Reaction Status Date / Time nickel Allergy Unknown Verified 12/18/23 15:46 Exam Const: General: cooperative, healthy appearing and comfortable Resp: Effort & Inspection: normal respiratory effort Auscultation: clear to auscultation bilaterally Cardio: Rate: regular rate Rhythm: regular rhythm GI: Inspection: normal to inspection Auscultation: normal bowel sounds : External Female Exam: normal external appearance Bimanual exam- vagina & uterus: enlarged ( fundal height 44cm, heart tone 140/150) Bimanual Exam- Adnexa, other: normal adnexae Assessment and Plan Assessment and plan (1) Dichorionic diamniotic twin : Code(s): O30.049 - Twin , dichorionic/diamniotic, unspecified trimester Status: Acute Assessment and Plan: presents for primary delivery.
[2023-12-24] VITALS (141 sets, daily range): BP systolic 51–147; BP diastolic 36–118; PULSE 59–274; RESP 12–20; TEMP 36.4–37.2; O2SAT 95–100; BMI 32.1
[2023-12-24 09:54] LABS: Basophils Absolute Auto 0.1 K/mm3 (0.0-0.1); Basophils Percent Auto 0.6 % (0.2-1.2); Eosinophils Absolute Auto 0.1 K/mm3 (0-0.3); Eosinophils Percent Auto 0.6 % (0-4.4); Hematocrit 40.6 % (37.0-47.0); Hemoglobin 13.5 g/dL (12.0-15.0); Immature Granulocyte Percent A 1.1 % (0-0.5); Lymphocytes Percent Auto 33.2 % (18.3-44.2); Mean Corpuscular HGB Conc 33.3 g/dl (32-36); Mean Corpuscular Volume 93.3 fl (80-100); Mean Platelet Volume 11.1 fl (7.4-10.4); Monocytes Absolute Auto 0.8 K/mm3 (0.1-0.6); Monocytes Percent Auto 8.3 % (2.6-8.5); Neutrophils Absolute Auto 5.2 K/mm3 (1.3-6.7); Neutrophils Percent Auto 56.2 % (45.5-73.1); Platelet Count Result 219 k/mm3 (150-375); Red Blood Count 4.35 M/mm3 (4.2-5.4); Red Cell Distribution Width 14.3 % (11.5-14.5); White Blood Count 9.3 K/mm3 (4.5-10.0)
[2023-12-24] MEDS: ACETAMINOPHEN 500 MG TABLET 1000 MG PO (10:00)
[2023-12-24] MEDS: LACTATED RINGERS 1,000 ML 125 ML IV CONT ×2 (10:02→11:35)
[2023-12-24 10:42] LABS: HIV 1/2 Ab P24 Ag Result Negative (Negative); Rubella IgG Antibody 29.5 IU/ML
[2023-12-24 10:48] LABS: Rapid Plasma Reagin Non-Reactive (NonReactive)
--- NOTE | 2023-12-24 11:22 | WPDHPUPDATE1 ---
History and Physical Update Update Date/Time: 12/24/23 11:22 History and Physical has been reviewed, including an updated exam of the patient. There are NO changes in the patient's condition. Risks, benefits, and alternatives have been discussed and questions answered. Patient agrees to proceed with procedure.
[2023-12-24] MEDS: FAMOTIDINE 20 MG/2 ML VIAL IV PUSH (11:33)
[2023-12-24] MEDS: ONDANSETRON INJ 4 MG/2 ML VIAL IV PUSH ×2 (11:33→17:56)
--- NOTE | 2023-12-24 12:10 | WPDANESEPPF ---
Anes - Initial Pre Proc Eval Procedure: Operation Date: 12/24/23 12:00 Proposed Procedures p Primary Section- Twins - Eliseo Rosales MD Date/Time: 12/24/23 12:10 Surgeon: Eliseo Rosales MD Pre Op Diagnosis: C/S Patient Data Age: 28 Gender: F Height: 1.7 m Weight: 93.2 kg Last Vital Signs Temp 98.9 F 12/24/23 10:00 Pulse 88 12/24/23 10:15 BP 126/83 12/24/23 10:15 O2 Del Method Room Air 12/24/23 09:18 Allergies Allergy/AdvReac Type Severity Reaction Status Date / Time nickel Allergy Unknown Verified 12/18/23 15:46 Home Medications Medication Instructions Recorded Confirmed Type vits no.126-ferrous fum 1 tablet PO DAILY 07/19/23 12/18/23 History 28 mg iron-folic acid 800 mcg tablet (Classic ) aspirin 81 mg tablet,delayed 162 mg PO DAILY 09/10/23 12/18/23 History release (Adult Low Dose Aspirin) Laboratory Tests 12/24/23 09:16 WBC 9.3 K/mm3 (4.5-10.0) RBC 4.35 M/mm3 (4.2-5.4) Hgb 13.5 g/dL (12.0-15.0) Hct 40.6 % (37.0-47.0) MCV 93.3 fl (80-100) MCH 31.0 pg (26-34) MCHC 33.3 g/dl (32-36) RDW 14.3 % (11.5-14.5) Plt Count 219 k/mm3 (150-375) MPV 11.1 H fl (7.4-10.4) Immature Gran % (Auto) 1.1 H % (0-0.5) Neut % (Auto) 56.2 % (45.5-73.1) Lymph % (Auto) 33.2 % (18.3-44.2) [place] % (Auto) 8.3 % (2.6-8.5) Eos % (Auto) 0.6 % (0-4.4) Baso % (Auto) 0.6 % (0.2-1.2) Lymph # (Auto) 3.10 K/mm3 (0.9-3.2) [place] # (Auto) 0.8 H K/mm3 (0.1-0.6) Eos # (Auto) 0.1 K/mm3 (0-0.3) Baso # (Auto) 0.1 K/mm3 (0.0-0.1) Abs Immat Gran (auto) 0.10 H K/mm3 (0.00-0.031) Absolute Neuts (auto) 5.2 K/mm3 (1.3-6.7) Absolute Nucleated RBC 0.000 K/mm3 (0.0-0.012) Nucleated RBC % 0.0 % (0.0-0.2) RPR Non-reactive (NonReactive) HIV 1&2 Ab/P24 Ag 4thGn Negative (Negative) Rubella IgG Antibody 29.5 IU/ML (10 - ) Blood Type O Positive Antibody Screen Negative Patient hx anesthesia problems: none Family hx anesthesia problems: none Results Review: All pre-operative results and documents have been reviewed as part of the pre-operative evaluation. [facility] Past Medical History Medical History Suppression of menses Surgical History Surgical History H/O wrist surgery History of hysteroscopy (08/10/22) Hscope D&C missed AB Family History Family History Legal Guardian No problems noted. Mother Skin cancer Grandparent Skin cancer Hypertension Social History Social History Smoking status: Never smoker Second hand tobacco smoke exposure: No Alcohol intake: former Alcohol use details: RARE WHEN NOT Substance use: never Substance use type: does not use Do You Feel Safe in your Home?: Yes Lack of Transportation: No Lack of Food: Never True Current Housing: I Have Housing Concerned About Future Housing: No Difficulty Paying Gas/Electric Bills: No Difficulty Paying for Meds: No Currently Unemployed: No Education: Master's Degree or Higher Difficulty w/ Childcare or Family Care: No Living arrangements: with family Additional living arrangements comments: spouse 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 Gender identity (if verbalized by the patient): Female Sexual Orientation (if Verbalized by the Patient): Straight or Heterosexual Spiritual care concerns: No Anes - Eval Final PreProcedure Day of Procedure 12/24/23 12:10 Patient weight: overweight Heart: regular rate and rhythm Lungs: clear to auscultation Airway: Mallampati scale class
[2023-12-24] MEDS: ceFAZolin 2 GM/D5W 50 ML 2 GM/50 ML BAG IVPB ×2 (12:12→15:28)
[2023-12-24] MEDS: miSOPROStol 200 MCG TABLET 1000 MCG RECTAL (13:42)
[2023-12-24] MEDS: OXYTOCIN 30 UNITS/NS 500 ML 30 UNITS/500 ML BAG 999 UNITS IV CONT (13:46)
[2023-12-24] MEDS: LACTATED RINGERS 1,000 ML 999 ML IV CONT (13:50)
--- NOTE | 2023-12-24 14:00 | PC.NURSE ---
Dr. Bolden advised green top tube not obtained with Coagulation labs. Repportd it will be OK to do CMP with CBC to be drawn in 4 hours.
[2023-12-24] MEDS: fentaNYL CITRATE INJ (*CRX) 100 MCG/2 ML VIAL 50 MCG IV PUSH (14:01)
[2023-12-24] MEDS: METHYLERGONOVINE MALEATE 0.2 MG TABLET PO (14:03)
[2023-12-24] MEDS: TRANEXAMIC ACID 1,000 MG in SODIUM CHLORIDE 0.9% IV 50 ML 360 MG IVPB (14:08)
[2023-12-24] MEDS: TRANEXAMIC ACID 1,000MG/ISO100 1,000 MG/100 ML BAG 200 MG IVPB (14:08)
[2023-12-24 14:10] LABS: Basophils Absolute Auto 0.1 K/mm3 (0.0-0.1); Basophils Percent Auto 0.6 % (0.2-1.2); Eosinophils Percent Auto 0.3 % (0-4.4); Hematocrit 32.3 % (37.0-47.0); Hemoglobin 10.7 g/dL (12.0-15.0); Immature Granulocyte Absolute 0.15 K/mm3 (0.00-0.031); Immature Granulocyte Percent A 1.5 % (0-0.5); Lymphocytes Absolute Auto 3.19 K/mm3 (0.9-3.2); Lymphocytes Percent Auto 30.9 % (18.3-44.2); Mean Corpuscular HGB Conc 33.1 g/dl (32-36); Mean Corpuscular Hemoglobin 31.2 pg (26-34); Mean Corpuscular Volume 94.2 fl (80-100); Mean Platelet Volume 10.9 fl (7.4-10.4); Monocytes Absolute Auto 0.9 K/mm3 (0.1-0.6); Monocytes Percent Auto 8.3 % (2.6-8.5); Neutrophils Absolute Auto 6.1 K/mm3 (1.3-6.7); Neutrophils Percent Auto 58.4 % (45.5-73.1); Platelet Count Result 193 k/mm3 (150-375); Red Blood Count 3.43 M/mm3 (4.2-5.4); Red Cell Distribution Width 14.4 % (11.5-14.5); White Blood Count 10.3 K/mm3 (4.5-10.0)
[2023-12-24] MEDS: ONDANSETRON INJ 4 MG/2 ML VIAL (14:18)
[2023-12-24] MEDS: OXYTOCIN 40 UNITS in LACTATED RINGERS 1,000 ML 125 UNITS IV CONT (14:19)
--- NOTE | 2023-12-24 14:48 | P.PCNOB_ITS ---
OB - Delivery Note Procedure Delivery date: 12/24/23 Pre-op diagnosis: Other (1. Thirty-eight week intrauterine 2. Twin gestation) Post-op Diagnosis: Same Procedure Performed: Primary Primary branch: low cervical, t ransverse Surgeon: Eliseo Rosales MD Anesthesia type: Spinal Description of Procedure/Findings: Patient prepped draped usual manner for this procedure. Pfannenstiel incision was made and then carried down to the fascia and then extended bilaterally the length of the skin incision. Superiorly and inferiorly dissected away from the rectus muscles the peritoneum was readily entered. Bladder flap was developed uterus scored. Lower segment was extended and vertex was delivered on baby a with a nuchal cord noted and reduced. Cord clamped cut. Vertex be ruptured membranes and delivered without difficulty. Cord was clamped and cut. Placenta was removed manually, and clots and membranes removed. Uterus was closed using 0 Monocryl in running interlocking manner with good approximation hemostasis noted. Uterus was well contracted and returned to the abdomen. Gutters were c lear so signs fluid and clots and the uterine incision was again inspected noted be hemostatic. All subfascial tissue was noted be hemostatic and the fascia was approximated using 0 Vicryl from the left angle to midline in the right angle to midline with good approximation noted. Subcutaneous tissue was approximated 0 plain suture and leticia were then used to approximate the skin edges. Patient was sent to recovery room in stable condition, at this point uterus was well contracted and minimal bleeding. Specimen: Yes (Placenta) Estimated Blood Loss: 455 Drains: Yes (Saba catheter) Packing: No Pathology: Yes (Placenta) Complications: No immediate complications Condition: Stable Disposition: PACU [place] Baby Gestational Age by Date: 38 gender: Female (Baby a female, baby B female) Placenta delivery description: Manual Removal Cord Vessel Description: 3 Vessels, Nuchal Cord (Baby a) and Reduced
[2023-12-24 14:50] LABS: INR 1.1; Prothrombin Time 14.6 Seconds (11.1-14.7)
[2023-12-24 14:51] LABS: Fibrinogen 432 mg/dl (215-510); Partial Thromboplastin Time 29.5 Seconds (22.3-36.8)
[2023-12-24] MEDS: TUBING, BLOOD PLUM PUMP TUBING 1 EACH XX (15:00)
[2023-12-24 15:08] LABS: D Dimer 8.49 ug/mL (<0.48)
[2023-12-24] MEDS: SODIUM CHLORIDE 0.9% IV 250 ML 30 ML IV CONT (15:15)
--- NOTE | 2023-12-24 16:40 | PC.NURSE ---
1340- Team OB called. notified. Orders for 1000 mcg cytotec rectally. BP changed to q2 mins 1342- Dr. Garcia @ bedside. Manual removal of clots. 1550 BL noted. Weighed on scale. PT A&O x3 RR 15 Vitals in [place] 1343- gave 1000 mcg cytotec rectally 1344- Pit @ 999ml. Pt A&O x3. RR 18 Vitals in [place] 1348- Temp 97.8 FF@U 1351- 18 G IV placed in RW by Saurav NUNES. LR Bolus 999ml 1355- 1170 BL noted. weighed on scale. Patient A&O x3 RR 15. Vitals in [place] 1358- Dr. Bolden @ bedside. Orders for IV fentanyl 50 mcg. Given @ this time by Shabbir NUNES 1400- 2 units PRBC ordered by 1402- Manual removal of clots by 1403- Verbal order for Methergine. Given @ this time by Ritesh NUNES. @ bedside 1404- Karissa placed by . Verbal order for TXA. Bleeding scant. Pt A&O x3 RR 16 Vitals in [facility] 1408- TXA started by Octavio WIN 1409- 375 BL noted. Weighed on scale 1418- order of zofran from . GIven @ this time by Ritesh NUNES 1419- Verbal order for 40 units pit in LR. from . Started @ this time. Verbal order for Ancef 2g. 1459- R wrist IV noted to be blown. IV removed. Swelling noted in right arm. IV access called @ this time to place new IV. A&O x3 RR 16 Vitals in [facility] 1525- 20 G IV L Arm placed by IV access Rachael 1528- Ancef 2 g started by Bob NUNES 1542- 125 urine output.
[2023-12-24] MEDS: LIDOCAINE 5% PATCH 1 PATCH TRANSDERM (17:55)
[2023-12-24] MEDS: MORPHINE SULFATE (*CRX) 2 MG/ML INJ IV PUSH ×2 (17:56→22:01)
[2023-12-24 18:16] LABS: Basophils Percent Auto 0.3 % (0.2-1.2); Eosinophils Percent Auto 0.1 % (0-4.4); Hematocrit 36.1 % (37.0-47.0); Hemoglobin 12.4 g/dL (12.0-15.0); Immature Granulocyte Absolute 0.12 K/mm3 (0.00-0.031); Immature Granulocyte Percent A 0.8 % (0-0.5); Lymphocytes Absolute Auto 2.79 K/mm3 (0.9-3.2); Lymphocytes Percent Auto 18.7 % (18.3-44.2); Mean Corpuscular HGB Conc 34.3 g/dl (32-36); Mean Corpuscular Hemoglobin 31.8 pg (26-34); Mean Corpuscular Volume 92.6 fl (80-100); Mean Platelet Volume 10.8 fl (7.4-10.4); Monocytes Absolute Auto 1.2 K/mm3 (0.1-0.6); Monocytes Percent Auto 7.9 % (2.6-8.5); Neutrophils Absolute Auto 10.8 K/mm3 (1.3-6.7); Neutrophils Percent Auto 72.2 % (45.5-73.1); Platelet Count Result 176 k/mm3 (150-375); White Blood Count 14.9 K/mm3 (4.5-10.0)
[2023-12-24 18:30] LABS: Alanine Aminotransferase 12 U/L (6-35); Albumin Level 2.8 g/dL (3.5-5.1); Alkaline Phosphatase 231 U/L (38-126); Anion Gap 7 mmol/L (4-12); Aspartate Amino Transferase 40 U/L (14-36); Bilirubin,Total 0.4 mg/dL (0.2-1.3); Blood Urea Nitrogen 11 mg/dL (7-17); Calcium 8.3 mg/dL (8.4-10.2); Carbon Dioxide 20 mmol/L (22-30); Chloride 105 mmol/L (98-107); Estimated CRCL calculation 106 ml/min; Estimated Glomerular Filt Rate > 60; Glucose 69 mg/dL (65-110); Sodium 132 mmol/L (137-145)
--- NOTE | 2023-12-24 18:44 | PC.NURSE ---
1840: RN phone Dr. Bolden to give her an update per Dr. Rosales's request since [facility] RN reported patient's vital signs and lab results to OB. Ob also aware patient is on her 2nd unit of blood, has had good urine output, and received Zofran and morphine for breakthrough pain and nausea. Orders to have patient eat dinner if she feels up to it, hold Toradol, give morphine as ordered if needed, give Methergine q8h, and draw repeat labs in the AM. Orders to call Dr. Granger throughout the night of an OB is needed.
--- NOTE | 2023-12-24 19:01 | PC.NURSE ---
174: RN informed OB Dr. Bolden that the blood from the Karissa filled in suction tubing and has dripped into the bottom of the suction canister but patient is not actively bleeding, OB states this is okay. 1829: Report given to shift stacker nurse Anson Ha.
--- NOTE | 2023-12-24 19:38 | PC.NURSE ---
Report given to Fadia James RN.
--- NOTE | 2023-12-24 20:17 | OBPPTRN ---
Patient transferred to post room #290 via stretcher. Support person present. Oriented to unit, room, information board, rooming in, admission packet and security measures. Patient verbalizes understanding.
[2023-12-24] MEDS: ACETAMINOPHEN 325 MG TABLET 650 MG PO (21:59)
[2023-12-24] MEDS: METHYLERGONOVINE MALEATE 0.2 MG/ML VIAL IM (22:00)
[2023-12-24] MEDS: LACTATED RINGERS 1,000 ML 125 ML (22:05)
[2023-12-25] VITALS (7 sets, daily range): BP systolic 122–131; BP diastolic 60–88; PULSE 63–76; RESP 16–20; TEMP 36.6–37.3; O2SAT 94–98
[2023-12-25] MEDS: diphenhydrAMINE HCl INJ 50 MG/ML VIAL 25 MG IV PUSH (03:10)
[2023-12-25] MEDS: ACETAMINOPHEN 325 MG TABLET 650 MG PO ×4 (03:10→22:00)
--- NOTE | 2023-12-25 03:10 | PC.NURSE ---
0230 - Patient called the desk and stated that she was bleeding. This RN and Jazlyn RN entered the room and assessed the bleeding. Patient had a small amount of bleeding coming from her vagina. After cleaning the patient up, this RN consulted with Madina NUNES from labor and was told this was fine with the Karissa in place as her fundus is still firm. 0310 - This RN reassessed the patient for further bleeding around the Karissa tubing and found no blood at this time. Fundus still firm at umbilicus.
[2023-12-25 05:21] LABS: Basophils Absolute Auto 0.1 K/mm3 (0.0-0.1); Basophils Percent Auto 0.4 % (0.2-1.2); Eosinophils Percent Auto 0.1 % (0-4.4); Hematocrit 35.2 % (37.0-47.0); Hemoglobin 12.3 g/dL (12.0-15.0); Immature Granulocyte Absolute 0.12 K/mm3 (0.00-0.031); Immature Granulocyte Percent A 0.9 % (0-0.5); Lymphocytes Absolute Auto 2.81 K/mm3 (0.9-3.2); Lymphocytes Percent Auto 20.4 % (18.3-44.2); Mean Corpuscular HGB Conc 34.9 g/dl (32-36); Mean Corpuscular Hemoglobin 31.9 pg (26-34); Mean Corpuscular Volume 91.4 fl (80-100); Mean Platelet Volume 10.4 fl (7.4-10.4); Monocytes Absolute Auto 1.2 K/mm3 (0.1-0.6); Neutrophils Absolute Auto 9.5 K/mm3 (1.3-6.7); Neutrophils Percent Auto 69.2 % (45.5-73.1); Platelet Count Result 163 k/mm3 (150-375); Red Blood Count 3.85 M/mm3 (4.2-5.4); Red Cell Distribution Width 13.9 % (11.5-14.5); White Blood Count 13.8 K/mm3 (4.5-10.0)
[2023-12-25 05:33] LABS: Alanine Aminotransferase 12 U/L (6-35); Albumin Level 2.6 g/dL (3.5-5.1); Alkaline Phosphatase 204 U/L (38-126); Anion Gap 5 mmol/L (4-12); Aspartate Amino Transferase 35 U/L (14-36); Bilirubin,Total 0.5 mg/dL (0.2-1.3); Blood Urea Nitrogen 9 mg/dL (7-17); Calcium 8.4 mg/dL (8.4-10.2); Carbon Dioxide 22 mmol/L (22-30); Chloride 105 mmol/L (98-107); Estimated CRCL calculation 95 ml/min; Estimated Glomerular Filt Rate > 60; Glucose 64 mg/dL (65-110); Potassium 3.7 mmol/L (3.4-5.0); Sodium 132 mmol/L (137-145)
[2023-12-25] MEDS: METHYLERGONOVINE MALEATE 0.2 MG/ML VIAL IM (05:55)
[2023-12-25] MEDS: LORATADINE 10 MG TABLET PO (09:03)
[2023-12-25] MEDS: MULTIVIT/MIN/PREN/FOL AC/IRON TABLET 1 TAB PO (09:03)
[2023-12-25] MEDS: HYDROcodone/acetaminophen (*CRX) 10-325 MG TABLET 1 TAB PO ×3 (09:04→19:39)
[2023-12-25] MEDS: DOCUSATE SODIUM 100 MG CAPSULE PO ×2 (09:04→16:01)
[2023-12-25] MEDS: SIMETHICONE 80 MG TAB.CHEW PO ×3 (09:05→16:01)
--- NOTE | 2023-12-25 09:43 | PC.NURSE ---
0815-Dr. Rosales at bedside to remove patient's MILADYS. Patient tolerated well. Order was given to continue pain meds Q6H as scheduled; okay to start ibuprofen now.
--- NOTE | 2023-12-25 09:45 | PC.NURSE ---
0915-RN attempted to get patient to chair; pt was able to sit on bedside but unable to ambulate to chair at this time; RN stated to give pain meds time to take effect and will attempt to sit in chair later. Saba catheter not removed at this time. Dr. Rosales stated it was okay to start ibuprofen at this time.
--- NOTE | 2023-12-25 09:55 | PC.NURSE ---
2294 Consulted with patient to assess needs related to . Discussed with mother her successes, concerns and any questions she has. We reviewed working with the infant, supporting breast, protecting her nipples with an optimal deep latch, good positioning, and good hand washing. Encouraged understanding the benefits of skin to skin, responding to feeding cues, frequencies of feeding 8-12 times in 24 hours (approximately 2-3 hours), duration of feedings, milk production, intake/output feeding sheet and signs of adequate intake encouraging swallowing at the breast. Reviewed positioning and alignment, supporting breast, off-centered (asymmetrical latch) and leading with the chin with big, open, wide gape. Infant (Baby B) latched optimally to the right breast in laid-back position. Education given to the mother of how to visualize the suckling (with good rocking jaw motion) swallows (dropping of the lower jaw) and how to listen for drinking at the breast (the ka sound). The was able to maintain latch without discomfort to mother, baby breastfed for 15 mins, this RN remained in the room for entire feeding. Nipple care reviewed with optimal latch, good positioning and using clean hands when touching her breast. Resources used to facilitate learning were used from the [visual handouts/ tool/mom and baby guide]. Mother is going to continue to put baby B to breast and then also supplement with pumped breast milk and/or formula, Baby A is currently in Level II nursery. Mother brought her own Spectra Breast pump and this RN will help her set that up and get her pumping this morning. Mother voiced understanding of the education shared, to call for assistance if the does not latch or if there is discomfort with . Reported to the Primary RN. 2448 RN measured mother's nipples and they are both between 19-20mm, per the Spectra instructions you should add 2-3mm to that number putting her between a 21-23mm sizing, she has 24mm flanges with her that we will try after this next with baby B around 1100. Per mother she did purchase the flange inserts for her pump to make them smaller that her mother is going to bring in if they are needed. Baby A is still in Level II nursery at this time. Reported to Primary RN.
[2023-12-25] MEDS: IBUPROFEN 600 MG TABLET PO ×3 (09:59→22:00)
--- NOTE | 2023-12-25 10:56 | PM.OBPNVD ---
OB - PN: Subj Subjective Date/time seen: 12/25/23 10:56 S: Patient hungry and thirsty, cramping. Tired though overall no headaches and generally feels well. O:VSS Afebrile UO adequate Abdomen: Positive bowel sounds soft bandage in place / dry Labs: Noted A: 1. /postoperative day 1... Overall doing well. Karissa device is removed today without difficulty. Events of yesterday again discussed at length with patient and and questions have been answered. P: 1. Routine / postoperative care. OB - PN: Obj Data Labs 12/25/23 05:10 12/25/23 05:10 Labs: Laboratory Results - last 24 hr 12/24/23 12/24/23 12/24/23 09:16 13:57 18:03 WBC 10.3 H 14.9 H RBC 3.43 L 3.90 L Hgb 10.7 L 12.4 Hct 32.3 L 36.1 L MCV 94.2 92.6 MCH 31.2 31.8 MCHC 33.1 34.3 RDW 14.4 14.0 Plt Count 193 176 MPV 10.9 H 10.8 H Immature Gran % (Auto) 1.5 H 0.8 H Neut % (Auto) 58.4 72.2 Lymph % (Auto) 30.9 18.7 [place] % (Auto) 8.3 7.9 Eos % (Auto) 0.3 0.1 Baso % (Auto) 0.6 0.3 Lymph # (Auto) 3.19 2.79 [place] # (Auto) 0.9 H 1.2 H Eos # (Auto) 0.0 0.0 Baso # (Auto) 0.1 0.0 Abs Immat Gran (auto) 0.15 H 0.12 H Absolute Neuts (auto) 6.1 10.8 H Absolute Nucleated RBC 0.000 0.000 Nucleated RBC % 0.0 0.0 PT 14.6 INR 1.1 APTT 29.5 Fibrinogen 432 D-Dimer 8.49 H Sodium 132 L Potassium 4.0 Chloride 105 Carbon Dioxide 20 L Anion Gap 7 BUN 11 D Creatinine 0.80 Estim Creat Clear Calc 106 Estimated GFR > 60 Glucose 69 Calcium 8.3 L Total Bilirubin 0.4 AST 40 H ALT 12 Alkaline Phosphatase 231 H Total Protein 6.0 L Albumin 2.8 L Blood Type O Positive Antibody Screen Negative Crossmatch See Detail 12/25/23 05:10 WBC 13.8 H RBC 3.85 L Hgb 12.3 Hct 35.2 L MCV 91.4 MCH 31.9 MCHC 34.9 RDW 13.9 Plt Count 163 MPV 10.4 Immature Gran % (Auto) 0.9 H Neut % (Auto) 69.2 Lymph % (Auto) 20.4 [place] % (Auto) 9.0 H Eos % (Auto) 0.1 Baso % (Auto) 0.4 Lymph # (Auto) 2.81 [place] # (Auto) 1.2 H Eos # (Auto) 0.0 Baso # (Auto) 0.1 Abs Immat Gran (auto) 0.12 H Absolute Neuts (auto) 9.5 H Absolute Nucleated RBC 0.000 Nucleated RBC % 0.0 PT INR APTT Fibrinogen D-Dimer Sodium 132 L Potassium 3.7 Chloride 105 Carbon Dioxide 22 Anion Gap 5 BUN 9 Creatinine 0.90 Estim Creat Clear Calc 95 Estimated GFR > 60 Glucose 64 L Calcium 8.4 Total Bilirubin 0.5 AST 35 ALT 12 Alkaline Phosphatase 204 H Total Protein 5.0 L Albumin 2.6 L Blood Type Antibody Screen Crossmatch OB - PN A/P Time Spent With Patient Time: Total time spent is greater than 50% in coordination of care (as documented) at patient's floor/unit and/or counseling patient:
--- NOTE | 2023-12-25 15:33 | PC.NURSE ---
1300 Measured moms breasts to confirm that she was using the correct size flange with the sizing tool that came with her spectra pump. Mom measured size 17mm with the spectra tool; followed the spectra guidelines for the ideal correct fit based on her size and mom felt the 19mm flange was a good fit. Mom attempted to pump to ensure a good fit and was able to express a few drop of colostrum on the left breast. Colostrum was finger fed to baby in the room. Instructions given on cleaning, care, usage, that there should be no pain, pumping schedule for milk production, collection, and storage of human milk. Patient was assessed for correct placement, to pump for comfort and nipple stretching/stimulation for adequate milk production every 3 hours (8 times in 24 hours) 1-2 times at night. Parents are encouraged to record the pumping schedule on the feeding sheet.?Mother voiced understanding of the education shared along with mom/baby guide and the pump measurement. Reported to the Primary RN.
--- NOTE | 2023-12-25 16:32 | PC.NURSE ---
1445. Attempted to help mom latch baby A to the breast. Multiple attempts made, baby very sleepy/reluctant to suck. Baby A able to latch in the cross cradle position to the L breast, but her mouth not opening wide enough to the ideal 140 degrees. Mom encouraged to try to offer baby a small amount of formula and then attempt to relatch baby at the breast. Mom offered baby 10cc of formula,then baby offered the L breast and she was successful at latching and suckling for about 7 min in an optimal latch. Mom denies pain or discomfort.
--- NOTE | 2023-12-25 16:39 | PC.NURSE ---
1500. Consulted with mom to help her latch and feed baby B at this time. Baby B sleepy/reluctant to suckle at the breast after multiple attempts. Mom encouraged to offer baby a small amount of formula and then retry to latch infant. Baby offered 5cc of formula, then relatched optimally at the R breast with a wide gape, lips flanged out, and rhythmic sucking motion. Baby B remained in the latch and continued to BF for 15 min with no pain to mom. Reported to primary RN.
--- NOTE | 2023-12-25 17:21 | WPDANLDNPN2 ---
Anes-Prog Note L&D-Neuraxial Date/Time: 12/25/23 17:21 Patient feedback: Patient satisfied with post-operative pain management.
--- NOTE | 2023-12-25 17:21 | WPDANLDPN2 ---
Anes-Prog Note L&D Date/Time: 12/25/23 17:21 Neuro status: Neuro function grossly intact. Cardiovascular status: normal Respiratory status: normal Airway patency: baseline Mental status: baseline Post-Op hydration status: normal Vital Signs: Last Vital Signs Temp 36.7 C 12/25/23 12:41 Pulse 74 12/25/23 12:41 Resp 16 12/25/23 12:41 BP 127/81 12/25/23 12:41 Pulse Ox 94 12/25/23 12:41 O2 Del Method Room Air 12/25/23 07:45 Pain score (VAS): 0 I/O: Intake & Output 12/25/23 12/25/23 12/25/23 07:59 15:59 23:59 Intake Total 400 400 Output Total 2850 1200 Balance -2450 -800 Post-procedural complaints: none Patient feedback: Patient satisfied with anesthetic care.
--- NOTE | 2023-12-25 18:40 | PC.NURSE ---
0815-RN attempted to ambulate patient to a chair; patient c/o pain too bad so pt was put back in bed. Will try again when pain meds take effect.
[2023-12-26] MEDS: HYDROcodone/acetaminophen (*CRX) 10-325 MG TABLET 1 TAB PO (00:55)
[2023-12-26] MEDS: HYDROcodone/acetaminophen (*CRX) 5-325 MG TABLET 1 TAB PO (04:20)
[2023-12-26] MEDS: IBUPROFEN 600 MG TABLET PO ×4 (04:20→23:10)
[2023-12-26] MEDS: ACETAMINOPHEN 325 MG TABLET 650 MG PO ×4 (04:20→23:11)
[2023-12-26 07:15] VITALS: BP 112/72; PULSE 81; RESP 16; TEMP 37.3; O2SAT 98
--- NOTE | 2023-12-26 08:00 | PC.NURSE ---
0800 Introductions were re made, then consulted with patient to assess needs related to . Mother had stated that both babies were latching great and she was only going to use the breast pump if the babies were not able to latch and feed, mother is also supplement with formula. Discussed with mother her?plans to feed?her infant and the?experience so far. Resources provided for inpatient and outpatient services with the feeding sheet, mom/baby guide and name written on the communication board. Mother voiced understanding of information and will call if there is a request for assistance. Reported to the Primary RN. 1130 Baby A latched optimally to the right breast in football position. Education given to the mother of how to visualize the suckling (with good rocking jaw motion) swallows (dropping of the lower jaw) and how to listen for drinking at the breast (the ka sound). The was able to maintain latch without discomfort to mother. Nipple care reviewed with optimal latch, good positioning and using clean hands when touching her breast. Mother voiced understanding of the education shared, to call for assistance if the does not latch or if there is discomfort with . Reported to the Primary RN.
[2023-12-26] MEDS: SIMETHICONE 80 MG TAB.CHEW PO ×4 (08:17→23:15)
[2023-12-26] MEDS: LIDOCAINE 5% PATCH 1 PATCH TRANSDERM (08:17)
[2023-12-26] MEDS: LORATADINE 10 MG TABLET PO (08:17)
[2023-12-26] MEDS: DOCUSATE SODIUM 100 MG CAPSULE PO ×2 (08:17→16:38)
[2023-12-26] MEDS: MULTIVIT/MIN/PREN/FOL AC/IRON TABLET 1 TAB PO (08:17)
--- NOTE | 2023-12-26 10:49 | PM.OBPNVD ---
OB - PN: Subj Subjective Date/time seen: 12/26/23 10:49 S: Ambulating without difficulty though slightly elevated after shower. Diet and urination without difficulty. O:VSS Afebrile Abdomen: Positive bowel sounds soft nondistended. Incision clean dry and intact with leticia in place A: Postoperative/ day 2... Overall doing well and as expected. P: Continue routine / postoperative care. Plan for discharge Saturday. OB - PN: Obj Data Labs 12/25/23 05:10 12/25/23 05:10 OB - PN A/P Time Spent With Patient Time: Total time spent is greater than 50% in coordination of care (as documented) at patient's floor/unit and/or counseling patient:
--- NOTE | 2023-12-26 10:51 | P.DS_ITS ---
DS: Admitting Diagnosis Discharge Date 12/28/2023 Admitting Diagnosis 1. 38 week ] 2. twin gestation DS: Discharge Diagnosis Discharge Diagnosis (1) Dichorionic diamniotic twin : Code(s): O30.049 - Twin , dichorionic/diamniotic, unspecified trimester Status: Acute (2) hemorrhage: Code(s): O72.1 - Other immediate hemorrhage Status: Acute OB - DS: Summary OB Procedures : None OB Procedures Intrapartum: OB Procedures: : Transfusion and Antibiotics Peripartum Data Procedures: Procedures Operation Date: 12/24/23 12:00 Actual Procedure Side Surgeon p Primary Section- Twins Not Applicable Eliseo Rosales MD Time Spent with Patient Time attestation: Total time spent providing and/or coordinating discharge services: DS: Data Data Completed and Pending Pending studies at discharge: Pending at discharge 12/24/23 14:46 Surgical [PTH] Routine Discharge Plan Discharge Discharging Clinician: Eliseo Rosales Patient Disposition: Home, Self-Care Activity: may shower, no driving, follow weight bearing status and pelvic rest Diet: as tolerated Wound Care Instructions: incision open to air Discharge Instructions: leticia out prior to discharge on Saturday Patient Instructions: Antibiotic Form Stand Alone Forms: General Discharge Information Follow-up/Referrals: Eliseo Rosales MD [Physician] - 3 Weeks Discharge Medications: New hydrocodone-acetaminophen 5-325 mg Tablet 1 tablet PO Q3H PRN (Reason: Breakthrough Pain Rated 4-6) Qty: 20 0RF ibuprofen 600 mg Tablet 600 mg PO Q6H Qty: 30 0RF Continued Classic 28 mg iron- 800 mcg tablet 1 tablet PO DAILY Discontinued aspirin [Adult Low Dose Aspirin] 81 mg tablet,delayed release (DR/EC) 162 mg PO DAILY Date of admission: 12/24/23 08:58 Primary Care Provider: PHYSICIAN,CATALYTIC CASE OPERATOR Admitting Provider: Eliseo Rosales Attending physician on admission: Eliseo Rosales Condition: Stable
--- NOTE | 2023-12-26 11:00 | PC.NURSE ---
informed this RN that pt was to be discharged Saturday and that the RN needs to remove the leticia. Will pass on in report.
[2023-12-26] MEDS: oxyCODONE HCL (*CRX) 5 MG TAB IR PO ×3 (11:13→21:06)
--- NOTE | 2023-12-26 16:50 | PC.NURSE ---
1530. Mother called to have nurse assist with latching baby A. Baby A was latched on to moms L breast in the football hold, she did not have her mouth opened wide enough and her top lip was rolling inwards. Mom was complaining of pinching when baby A nursed and no pain with baby B. We reviewed how to delatch baby, make sure baby is opening with a wide gape and her head tilting into the sniffing position . We reviewed baby latching with her top lip first and making an asymmetrical latch, and to readjust baby by pressing on her bum to move her in closer to the breast. Multiple attempts made to relatch baby until an optimal latch was met. We reveiwed the use of a nipple shield and discussed that as an option for mom to protect her nipples from damage since she is nursing twins and currently having some persistent pinching pain with baby A. Reviewed good handwashing, cleaning the nipple shield and the appropriate way to apply and use as a tool. Discussed with mom the nipple shield precautions, possible complications associated with the risks and benefits. Reviewed practicing with a nipple shield, then without and how to protect the milk supply and production. Mom and baby guide referred to as a resource for outpatient services, community resources and when to call a provider. Mom voiced understanding of the importance of hand expression, nipple stimulation and initiating a pumping schedule if infant continues to nurse with the shield. Reported to the Primary RN. Worked with mom as she latched baby B at this time and to check baby B's latch. Mom latched baby B independently to the R breast in football hold. Baby's lips were flanged out sealing the breast in an optimal latch. Mom denied pain with baby B suckling. Baby B went on to nurse 25 min during this feeding session.
[2023-12-26 20:00] VITALS: BP 128/86; PULSE 88; RESP 18; TEMP 37; O2SAT 96
[2023-12-26] MEDS: LANOLIN (LANSINOH) 7.5 GM CREAM 1 APPLIC TOPICAL (23:16)
[2023-12-27] MEDS: oxyCODONE HCL (*CRX) 5 MG TAB IR PO ×5 (01:47→20:40)
[2023-12-27] MEDS: IBUPROFEN 600 MG TABLET PO ×3 (06:43→19:26)
[2023-12-27] MEDS: ACETAMINOPHEN 325 MG TABLET 650 MG PO ×3 (06:43→19:26)
[2023-12-27 07:00] VITALS: BP 121/71; PULSE 71; RESP 18; TEMP 36.9; O2SAT 99
--- NOTE | 2023-12-27 08:01 | PM.OBPNVD ---
OB - PN: Subj Subjective Date/time seen: 12/27/23 08:01 Patient comments: no complaints, pain well controlled, tolerating diet and flatus present OB - PN: Obj Data Labs 12/25/23 05:10 12/25/23 05:10 OB - PN A/P Plan day: 2 Plan: routine care Comments: patient doing well bleeding improved afebrile, VSS incision C/D/I mixon removed, voiding spontaneously continue routine post op care Time Spent With Patient Time: Total time spent is greater than 50% in coordination of care (as documented) at patient's floor/unit and/or counseling patient: Time with patient: less than 15 minutes Review of Systems Constitutional: Constitutional: Reports no additional constitutional complaints Cardiovascular: Cardiovascular: Reports no additional cardiovascular complaints Respiratory: Respiratory: Reports no additional respiratory complaints Gastrointestinal: Gastrointestinal: Reports no additional gastrointestinal complaints Genitourinary: Genitourinary: Reports no additional female genitourinary complaints Exam Const: General: comfortable and no acute distress Resp: Effort & Inspection: normal respiratory effort Auscultation: clear to auscultation bilaterally Cardio: Rate: regular rate GI: GI Palp: Yes Soft to palpation, Yes Tenderness to palpation present (GI) (around incision ) and No Guarding due to palpation present (GI) Auscultation: normal bowel sounds Other: incision C/D/I, leticia in place Psych: Appearance: grossly normal Mental Status: mental status grossly normal Affect: normal affect
[2023-12-27] MEDS: DOCUSATE SODIUM 100 MG CAPSULE PO ×2 (08:16→17:24)
[2023-12-27] MEDS: MULTIVIT/MIN/PREN/FOL AC/IRON TABLET 1 TAB PO (08:16)
[2023-12-27] MEDS: SIMETHICONE 80 MG TAB.CHEW PO ×2 (08:17→17:24)
--- NOTE | 2023-12-27 09:15 | PC.NURSE ---
Called to room to assess a . Mother had latched baby A (Ada) in a football hold without the shield, but baby was sleepy and the latch was painful. Mother applied the nipple shield given to her yesterday to try to assist with a less painful latch. Mom applied the shield correctly but baby is sleepy and not trying to latch. We unwrapped baby and placed her in cradle hold. She was more eager and mom latched her with the shield. We discussed how the nipple should get pulled into the shield and how milk should be visible in the shield when infant comes off the breast. Baby was nursing with some stimulation. Discussed with mom supply and demand; clustering feeding to increase milk supply, and how supplementing after each can reduce the stimulation to her breasts, as well as the shield reducing stimulation. She has used her Spectra pump to be sure the flanges are a correct fit, but is not pumping regularly. We discussed adding in pumping as part of her feeding routine. Depending on how much the twins stimulate her breast and if she uses the nipple shield consistently, pumping may be necessary to promote a full milk supply. Mother also had a very significant blood loss, so the more she stimulates her breast, the better her chances of having a full milk supply are. Mother also has concerns that baby A lets the formula run out of her mouth when she bottle feeds. Mother was shown how to provide gentle chin support and we talked about how some babies tend to be messier eaters than others. Mother has the phone number on her board and will call out for assistance today as needed. Reported to Primary RN.
[2023-12-27] MEDS: SIMETHICONE 80 MG TAB.CHEW (12:58)
[2023-12-27 19:26] VITALS: BP 116/80; PULSE 90; RESP 18; TEMP 36.7; O2SAT 97
[2023-12-28] MEDS: IBUPROFEN 600 MG TABLET PO ×2 (01:00→08:04)
[2023-12-28] MEDS: ACETAMINOPHEN 325 MG TABLET 650 MG PO ×2 (01:00→08:04)
[2023-12-28] MEDS: oxyCODONE HCL (*CRX) 5 MG TAB IR PO (06:37)
[2023-12-28 08:00] VITALS: BP 121/71; PULSE 72; RESP 17; TEMP 36.4; O2SAT 98
[2023-12-28] MEDS: DOCUSATE SODIUM 100 MG CAPSULE PO (08:04)
[2023-12-28] MEDS: SIMETHICONE 80 MG TAB.CHEW PO (08:04)
[2023-12-28] MEDS: MULTIVIT/MIN/PREN/FOL AC/IRON TABLET 1 TAB PO (09:17)
--- NOTE | 2023-12-28 11:15 | PC.NURSE ---
Mother verbalizes she is able to independently latch with appropriate positioning and alignment. She denies any nipple discomfort and is responsively . Infant is currently meeting outcomes for weight, output, jaundice, blood sugar and feeding frequencies of 8-12 times in 24 hours. Mother declines any additional assistance at this time. Reviewed pumping and handouts were given for when she decides to pump (when she returns to work) and all questions were answered. Mother is encouraged to call for assistance if her doesn?t latch, pain with latching, questions or concerns. Mother voiced understanding of information shared along with the mom/baby guide for an additional resource. Reported to the Primary RN.
[2023-12-30 15:06] VITALS: BP 129/82; PULSE 89; RESP 18; TEMP 37.1; O2SAT 97
--- NOTE | 2024-01-10 10:19 | P.PNCROSS_ITS ---
Event Note Event Note Event Note: Patient evaluated after emergency call for hemorrhage in recovery fr om for twins. Her primary OB was en route. Large clot on pad. Uterus palpated, moderate tone. I cleared the lower uterine segment of large amount of clot, after that uterine tone normal. Minimal lochia.
== END 2023-12-28 11:40 | disposition home or self-care (01) | DRG 787 ==
LOC: ANHLDR 09:03 → ANHOB2 21:23
PROVIDERS: Obstetrics & Gynecology; Admitting Provider Obstetrics & Gynecology; Visit Provider Obstetrics & Gynecology
PROC: 10D00Z1 Extraction of Products of Conception, Low, Open Approach (ICD-10-PCS; CPT 59514; principal; 2023-12-24 12:00)
DX: O30.043 Twin pregnancy, dichorionic/diamniotic, third trimester (principal); O72.1 Other immediate postpartum hemorrhage; O69.81X1 Labor and delivery complicated by cord around neck, without compression, fetus 1; O67.8 Other intrapartum hemorrhage; Z3A.38 38 weeks gestation of pregnancy; Z37.2 Twins, both liveborn
CPT/HCPCS: 36415; 36430; 80053; 85025; 85380; 85384; 85610; 85730; 86592; 86703; 86762; 86850; 86900; 86901; 86923; 88307; A9270; G0432; J0690; J1200; J2210; J2270; J2274; J2405; J2590; J3010; J7050; J7120; P9016